=== PATIENT | female | born 1980 | race Caucasian/White ===

== ENCOUNTER 2020-03-23 13:19 | Outpatient (CLI) | payer OTHER ==
[2020-03-23 15:30] VITALS: BP 142/90; PULSE 142; RESP 18; TEMP 98.4
--- NOTE | 2020-04-10 07:53 | P.MSEPDOC ---
Presenting Problems - Arrival Data Date of Arrival on Unit: 03/23/20 Time of Arrival on Unit: 13:20 Mode of Transport: Ambulatory - Complaint OB-Reason for Admission/Chief Complaint: Possible Onset of Labor Comment: contractions at home x 4 hours, no leaking or bleeding Medical History - Information : 1 Para: 0 Term: 0 : 0 Abortions: Spontaneous or Elective: 0 Number of Living Children: 0 - Gestational Age Gestational Age by FRED (wks/days): 40 Weeks and 0 Days - History Comment: denies complications Review of Systems - Review of Systems Constitutional: No problems Breast: No problems ENT: No problems Cardiovascular: No problems Respiratory: No problems Gastrointestinal: No problems Genitourinary: No problems Musculoskeletal: No problems Neurological: No problems Skin: No problems Vital Signs - Temperature Temperature: 98.4 F Temperature Source: Oral - Pulse Right Sitting Brachial Pulse Rate: 142 Pulse Assessment Method: Automatic Cuff - Respirations Respiratory Rate: 18 Oxygen Delivery Method: Room Air - Blood Pressure Right Arm Sitting Blood Pressure: 142/90 Blood Pressure Mean: 107 Blood Pressure Source: Automatic Cuff Medical Screen Scoring (Pre) - Cervical Exam Dilation: 1-3 cm = 1 Effacement: More than 50% = 2 Membranes: Intact - Uterine Contractions Frequency: > or = 36 weeks =2 Duration: > 40 seconds = 2 Intensity: N/A - Maternal Vital Signs Maternal Temperature: N/A Maternal Blood Pressure: N/A Signs of Preeclampsia: N/A Maternal Respirations: N/A - Maternal Trauma Maternal Trauma: N/A - Assessment - Baby A Baseline FHR: 125 Heart Rate - NICHD Category: Category I (Normal) = 0 NST: Reactive Station: N/A - Total Score - Baby A Total Score - Baby A: 7 - Total Score - Baby B Total Score - Baby B: 7 - Total Score - Baby C Total Score - Baby C: 7 - Level of Risk - Baby A Level of Risk - Baby A: Medium (6-9) - Level of Risk - Baby B Level of Risk - Baby B: Medium (6-9) - Level of Risk - Baby C Level of Risk - Baby C: Medium (6-9) Physician Notification (Pre) - Physician Notified Physician Notified Date: 03/23/20 Physician Notified Time: 15:29 New Order Received: Yes - Notification Comment Comment: Dc Home. return with increased or continued symptoms. follow up with Dr Bynum Wednesday as scheduled. Disposition - Disposition OB Disposition: Discharge to home Discharge Date: 03/23/20 Discharge Time: 15:30 I agree with the RN Medical Screening Exam: Yes Risk & Benefit of care provided described in d/c instruction: Yes Diagnosis: false labor
== END 2020-03-23 15:33 | disposition home or self-care (01) ==
LOC: FBPOP 13:19
PROVIDERS: ATTEND Obstetrics & Gynecology
DX: O47.1 False labor at or after 37 completed weeks of gestation (principal); Z3A.40 40 weeks gestation of pregnancy
CPT/HCPCS: 59025; 99213

== ENCOUNTER 2020-03-23 17:55 | Inpatient (IN) | payer OTHER ==
[2020-03-23] MEDS ORDERED: METHYLERGONOVINE 0.2 MG/ML 1 ML AMP IM PRN (18:06)
[2020-03-23] MEDS ORDERED: TERBUTALINE 1 MG/ML VIAL SQ PRN (18:06)
[2020-03-23] MEDS ORDERED: OXYTOCIN 10 UNIT/ML 1 ML VIAL IM PRN (18:06)
[2020-03-23] MEDS ORDERED: CARBOPROST TROMETHAMINE 250 MCG/ML 1 ML AMP IM PRN (18:06)
[2020-03-23] MEDS ORDERED: LIDOCAINE 0.5% (PF) 5 MG/ML (50 ML SDV) SQ PRN (18:06)
[2020-03-23] MEDS ORDERED: LACTATED RINGERS 1,000 ML IV SCH ×2 (18:15)
[2020-03-23] MEDS ORDERED: OXYTOCIN 30 UNITS/500 ML NS 30 UNIT in SALINE 1 500ML.BAG IV SCH (18:15)
[2020-03-23 18:27] LABS: Basophils % (A) 0 %; Eosinophils # (A) 0.2 k/uL (0-0.7); Eosinophils % (A) 1 %; HCT 41.2 % (34.0-46.0); HGB 13.2 gm/dL (11.4-16.0); Lymphocytes # (A) 1.3 k/uL (1.0-4.8); Lymphocytes % (A) 7 %; MCH 29.3 pg (25.0-35.0); MCHC 32.1 g/dL (31.0-37.0); Mean Platelet Volume 8.3; Monocytes # (A) 0.4 k/uL (0-1.0); Monocytes % (A) 2 %; Neutrophils # (A) 15.7 k/uL (1.3-7.7); Neutrophils % (A) 88 %; Platelet Count 325 k/uL (150-450); RBC 4.53 m/uL (3.80-5.40); RDW 13.2 % (11.5-15.5); WBC 17.8 k/uL (3.8-10.6)
--- NOTE | 2020-03-23 18:55 | P.HPOB ---
History of Present Illness H&P Date: 03/23/20 Chief Complaint: Labor at 40-0/7 weeks This is a 40-year-old 1 para 0 woman with an estimated due date of 03/23/2020 based on LMP consistent with second trimester ultrasound. She presents to labor and delivery triage with spontaneous active contractions worsening throughout the day. She also reports leakage of fluids and has a positive amnio sure test. Her has been notable for advanced maternal age and a history of depression on sertraline 50 mg daily. She reports onset of contractions on this morning. In fact she did come in to labor and delivery triage and was monitored for a couple hours however her cervix remained 1 cm dilated there for she was sent home. Her labor progressed and she re-presented at which time she was found to be 5 cm dilated with a positive amnio sure test. Laboratory data: Blood type O+, antibody screen negative, rubella nonimmune, VDRL nonreactive, hep Christiane surface antigen negative, HIV negative, gonorrhea and clinic cultures negative, glucose tolerance testing within normal limits, group B strep negative. Review of Systems All systems: negative Past Medical History Past Medical History: Thyroid Disorder History of Any Multi-Drug Resistant Organisms: None Reported Past Surgical History: No Surgical Hx Reported Past Anesthesia/Blood Transfusion Reactions: No Reported Reaction Past Psychological History: Depression Smoking Status: Never smoker - Past Family History Mother Family Medical History: No Reported History Medications and Allergies Home Medications Medication Instructions Recorded Confirmed Type Levothyroxine Sodium [Synthroid] 1 tab PO DAILY 03/23/20 03/23/20 History Sertraline [Zoloft] 1 tab PO DAILY 03/23/20 03/23/20 History Allergies Allergy/AdvReac Type Severity Reaction Status Date / Time Sulfa (Sulfonamide Allergy Swelling Verified 03/23/20 18:00 Antibiotics) Exam Vital Signs Temp Pulse Resp BP Pulse Ox 03/23/20 18:09 97.0 F L 83 18 121/84 97 Intake and Output 03/23/20 03/23/20 03/23/20 06:59 14:59 22:59 Other: Weight 187 kg Targeted physical exam is performed: Assisted visibly gravid, actively laboring female. On pelvic examination the cervix is approximately 8 cm dilated 100% effaced. There is a bulging bag of fluids noted which is ruptured and particulate meconium-stained fluid is noted. Vertex is in the -2 station. heart tones are category 2 with some decreased variability noted. She is jason approximately every 1-3 minutes spontaneously. Results Result Diagrams: 03/23/20 18:17 Abnormal Lab Results - Last 24 Hours (Table) 03/23/20 Range/Units 18:17 WBC 17.8 H (3.8-10.6) k/uL Neutrophils # 15.7 H (1.3-7.7) k/uL Assessment and Plan (1) Term Current Visit: Yes Status: Acute Code(s): Z34.90 - ENCNTR FOR SUPRVSN OF NORMAL , UNSP, UNSP TRIMESTER SNOMED Code(s): 26862499 (2) Advanced maternal age (AMA) in Current Visit: Yes Status: Acute Code(s): CSS6444 - SNOMED Code(s): 699131210 (3) Spontaneous onset of labor Current Visit: Yes Status: Acute Code(s): CLE9781 - SNOMED Code(s): 32222572 (4) Spontaneous rupture of membranes Current Visit: Yes Status: Acute Code(s): XHG5281 - SNOMED Code(s): 199440825 (5) Meconium in amniotic fluid Current Visit: Yes Status: Acute Code(s): P96.83 - MECONIUM STAINING SNOMED Code(s): 2290464 Plan: 40-year-old 1 in spontaneous active labor at 40-0/7 weeks gestation with spontaneous rupture of membranes and findings of the particulate meconium-st ained fluid. heart tones currently category 2 with some decreased variability but no decelerations. Process was has been notified to be on standby for delivery for suctioning. Patient is group B strep negative and Rh+. Anticipate spontaneous vaginal delivery.
[2020-03-23] MEDS ORDERED: CITRIC ACID-SODIUM CITRATE 15 ML CUP PO ONE ×2 (21:20→21:24)
[2020-03-23] MEDS ORDERED: ONDANSETRON 4 MG/2 ML VIAL ONE (21:32)
[2020-03-23] MEDS ORDERED: MORPHINE SULFATE (PF) 0.3 MG/0.3 ML SYR ONE (21:32)
[2020-03-23] MEDS ORDERED: OXYTOCIN 10 UNIT/ML 1 ML VIAL ONE (21:32)
[2020-03-23] MEDS ORDERED: KETOROLAC 15 MG/ML 1 ML VIAL ONE (21:32)
--- NOTE | 2020-03-23 22:32 | P.OP ---
Date of Procedure: 03/23/20 Preoperative Diagnosis: Term Maternal intolerance of the second stage Meconium fluid Postoperative Diagnosis: Same Procedure(s) Performed: Primary low transverse section Anesthesia: spinal Surgeon: Freya Denson Neonatal Intensive Care Unit Nurse #1: Hany Varner Estimated Blood Loss (ml): 400 IV fluids (ml): 1,000 Urine output (ml): 300 Pathology: other (Placenta) Condition: stable Disposition: floor Indications for Procedure: This is a 40-year-old 1 para 0 woman who presented in spontaneous active labor with rupture of membranes at 40-0/7 weeks gestation. She was 5 cm dilated with a positive amnio sure upon admission. She had a fore bag was ruptured and she was found to be 8 cm dilated. She progressed to complete cervical dilation however found actively pushing in the second stage very difficult. The beginning of the second stage of labor she had a prolonged bradycardia to the 80 bpm which did resolve with maternal position changes and oxygen. With positioning for the remainder of the second stage she did have reassuring heart tones. Unfortunately she was unable or unwilling to comfortably and actively participated in the second stage of labor despite education enco uragement and coaching. She eventually declared that she could not push and requested a . The procedure, anticipated recovery, implications for future pregnancies and risks were reviewed with the patient and her . Risks specifically stated were bleeding, transfusion, infection, injury to internal structures or the , anesthesia complications or DVT. Consent was obtained and the anesthesiologist was notified. Operative Findings: Female in the vertex occiput anterior position deeply engaged in the maternal pelvis. Thick meconium stained fluid. Nuchal cord 1. Intact, three- vessel cord placenta. Normal-appearing bilateral fallopian tubes and ovaries. Apgars of 6 at 1 minute and 9 at 5 minutes and 9 at 10 minutes weighing 7 lbs. 13 oz., 3540 g. Description of Procedure: After the patient and her were counseled regarding the procedure and consent was obtained, she's taken to the operating room where spinal anesthetic was administered without incident. She is in positioned, prepped and draped in the dorsal supine position with a leftward tilt. Lueng catheter was in the bladder and scalp electrode was removed prior to draping. Anesthetic was then confirmed adequate and a low transverse skin incision was made and carried down to the underlying fascia sharply and with the electrocautery. The fascia was incised in the midline and extended bilaterally with the Vargas scissors. The superior and inferior aspects of the fascial incision were elevated and the underlying rectus muscles dissected off sharply and with the electrocautery. The rectus muscles were sharply in the midline and the peritoneum was identified, tented up and entered sharply. The peritoneal incision was extended inferiorly and superiorly with good visualization the bladder. The bladder blade was placed. The vesicouterine peritoneum was identified, tented up and entered sharply. The bladder flap was created both sharply and digitally. Bladder blade was replaced. A low transverse uterine incision was made and carried down to the underlying amniotic membranes carefully. The membranes were ruptured and copious meconium-stained fluid was noted. The was noted to be deeply engaged the maternal pelvis. The head was carefully elevated out of the pelvis and the head was delivered. The nose and mouth were thoroughly bulb suctioned. Tight nuchal cord 1 was noted and reduced. The rest the infant was delivered onto the field with the nose and mouth were further bulb suctioned and the cord was clamped and cut. The infant was taken to the warmer for further evaluation. An intact, three- vessel cord placenta with meconium staining was manually removed. The uterus was exteriorized and cleared of all clot and debris. Uterus incision was delineated using Johnson's and the incision was closed in a running locked fashion with 0 Vicryl suture. A second imbricating layer of the same suture was noted. Additional [id number] suture in the midline 2 was noted for hemostasis. The uterus was then returned to the abdomen and the gutters were cleared of all clot and debris. The uterine incision was inspected and was noted to be hemostatic. The fascial edges, rectus muscles and peritoneal edges were inspected and also noted to be hemostatic. The peritoneum was reapproximated in the midline. The fascia was then closed in running fashion with 0 Vicryl suture. The subcutaneous tissue was irrigated and noted to be hemostatic. This was closed using 3-0 chromic. The skin was then closed in a subcutaneous fashion with 4-0 Vicryl suture. All counts reported to me as correct by the operating room staff the patient was transported recovery area in stable condition.
[2020-03-23] MEDS ORDERED: diphenhydrAMINE 50 MG/ML 1 ML VIAL IVP PRN ×2 (22:33)
[2020-03-23] MEDS ORDERED: ACETAMINOPHEN TAB 325 MG TAB PO PRN (22:33)
[2020-03-23] MEDS ORDERED: diphenhydrAMINE 25 MG CAP PO PRN (22:33)
[2020-03-23] MEDS ORDERED: ZOLPIDEM 5 MG TAB PO PRN (22:33)
[2020-03-23] MEDS ORDERED: NALOXONE 0.4 MG/ML 1 ML VIAL IV PRN (22:33)
[2020-03-23] MEDS ORDERED: METOCLOPRAMIDE 5 MG/ML 2 ML VIAL IVP PRN (22:33)
[2020-03-23] MEDS ORDERED: MEASLES-MUMPS-RUBELLA VACC/PF 12,500 UNIT/0.5 ML VIAL SQ ONE (22:33)
[2020-03-23] MEDS ORDERED: diphenhydrAMINE 50 MG CAP PO PRN (22:33)
[2020-03-23] MEDS ORDERED: ONDANSETRON 4 MG/2 ML VIAL IVP PRN (22:33)
[2020-03-23 23:29] LABS: Basophils % (A) 0 %; Eosinophils # (A) 0.1 k/uL (0-0.7); Eosinophils % (A) 0 %; HCT 40.2 % (34.0-46.0); HGB 12.8 gm/dL (11.4-16.0); Lymphocytes # (A) 0.8 k/uL (1.0-4.8); Lymphocytes % (A) 4 %; MCH 29.4 pg (25.0-35.0); MCHC 31.8 g/dL (31.0-37.0); MCV 92.6 fL (80.0-100.0); Mean Platelet Volume 8.4; Monocytes # (A) 0.4 k/uL (0-1.0); Monocytes % (A) 2 %; Neutrophils # (A) 17.3 k/uL (1.3-7.7); Neutrophils % (A) 93 %; Platelet Count 314 k/uL (150-450); RBC 4.34 m/uL (3.80-5.40); RDW 13.2 % (11.5-15.5); WBC 18.6 k/uL (3.8-10.6)
[2020-03-24] MEDS: SERTRALINE 50 MG TAB PO SCH ×2 (01:17→20:48)
[2020-03-24] MEDS: LACTATED RINGERS 1,000 ML IV SCH ×3 (01:21→12:41)
[2020-03-24] MEDS: KETOROLAC 15 MG/ML 1 ML VIAL IVP PRN ×3 (04:11→17:31)
--- NOTE | 2020-03-24 06:13 | P.PNOBGPC ---
Subjective - Subjective Principal diagnosis: Postop day 1/2 Interval history: Resting comfortably. Patient reports: Reports appetite normal, Reports pain well controlled, Denies voiding normally (Leung still in place) Aladdin: doing well Objective - Vital Signs Latest vital signs: Vital Signs Temp Pulse Resp BP Pulse Ox 03/24/20 04:00 98.3 F 97 17 120/79 96 03/24/20 00:25 76 18 136/65 100 03/23/20 23:55 65 18 107/68 98 03/23/20 23:25 96.3 F L 68 18 108/63 97 03/23/20 23:10 80 18 92/64 96 03/23/20 22:55 96 18 98/51 97 03/23/20 22:40 96.4 F L 85 18 102/54 97 03/23/20 22:25 96.3 F L 81 18 105/56 97 03/23/20 18:09 97.0 F L 83 18 121/84 97 Intake and Output 03/23/20 03/23/20 03/24/20 14:59 22:59 06:59 Output Total 600 Balance -600 Output: Urine 200 Estimated Blood Loss 400 Other: Voiding Method Indwelling Catheter Weight 187 kg - Exam Abdomen: Present: soft Incision: Present: dry, intact, dressed Uterus: Present: normal, firm - Labs Labs: Abnormal Lab Results - Last 24 Hours (Table) 03/23/20 03/23/20 Range/Units 18:17 23:16 WBC 17.8 H 18.6 H (3.8-10.6) k/uL Neutrophils # 15.7 H 17.3 H (1.3-7.7) k/uL Lymphocytes # 0.8 L (1.0-4.8) k/uL Assessment and Plan (1) Term Current Visit: Yes Status: Acute Code(s): Z34.90 - ENCNTR FOR SUPRVSN OF NORMAL , UNSP, UNSP TRIMESTER SNOMED Code(s): 22786066 (2) Advanced maternal age (AMA) in Current Visit: Yes Status: Acute Code(s): UTX2645 - SNOMED Code(s): 527108061 (3) Spontaneous onset of labor Current Visit: Yes Status: Acute Code(s): RXH8999 - SNOMED Code(s): 79181823 (4) Spontaneous rupture of membranes Current Visit: Yes Status: Acute Code(s): BTT0328 - SNOMED Code(s): 869452128 (5) Meconium in amniotic fluid Current Visit: Yes Status: Acute Code(s): P96.83 - MECONIUM STAINING SNOMED Code(s): 3067233 (6) Nuchal cord Current Visit: Yes Status: Acute Code(s): O69.81X0 - LABOR AND DEL COMP BY CORD AROUND NECK, W/O COMPRSN, UNSP SNOMED Code(s): 792874460 (7) S/P section Current Visit: Yes Status: Acute Code(s): Z98.891 - HISTORY OF UTERINE SCAR FROM PREVIOUS SURGERY SNOMED Code(s): 347252806 Plan: Postop day one half status post primary low transverse section. Recovering well. Advance per protocol.
[2020-03-24] MEDS ORDERED: LEVOTHYROXINE 88 MCG TAB PO SCH (06:30)
[2020-03-24] MEDS: SENNOSIDES-DOCUSATE SODIUM 1 EACH TAB PO SCH ×2 (08:08→20:48)
[2020-03-24] MEDS ORDERED: SERTRALINE 50 MG TAB PO SCH (09:00)
[2020-03-24 10:33] LABS: Basophils % (A) 0 %; Eosinophils % (A) 0 %; HGB 11.3 gm/dL (11.4-16.0); Lymphocytes # (A) 1.9 k/uL (1.0-4.8); Lymphocytes % (A) 11 %; MCH 30.7 pg (25.0-35.0); MCHC 33.3 g/dL (31.0-37.0); MCV 92.3 fL (80.0-100.0); Mean Platelet Volume 9.1; Monocytes # (A) 0.6 k/uL (0-1.0); Monocytes % (A) 3 %; Neutrophils # (A) 15.1 k/uL (1.3-7.7); Neutrophils % (A) 85 %; Platelet Count 299 k/uL (150-450); RBC 3.69 m/uL (3.80-5.40); RDW 13.8 % (11.5-15.5); WBC 17.8 k/uL (3.8-10.6)
--- NOTE | 2020-03-24 10:50 | P.PN ---
Progress Note - Text Progress Note Date: 03/24/20 S/P POD #1. Had spinal anesthetic with intrathecal narcotic. Excellent analgesia overnight, with minimal side effects. Injection site looks ok, without signs of bleeding or inflammation. Discussed likely length of analgesic effect with patient, and possible need for po analgesics later today. Will re-eval prn.
[2020-03-24] MEDS: IBUPROFEN 600 MG TAB PO PRN (20:47)
[2020-03-24] MEDS: LEVOTHYROXINE 88 MCG TAB PO SCH (20:48)
[2020-03-25] MEDS: HYDROcodone/APAP 5-325MG 1 EACH TAB PO PRN ×4 (00:49→20:40)
[2020-03-25] MEDS: IBUPROFEN 600 MG TAB PO PRN ×3 (06:20→18:24)
--- NOTE | 2020-03-25 07:47 | P.PN ---
Subjective Progress Note Date: 03/25/20 Principal diagnosis: Postoperative day number two Objective - Vital Signs Vital signs: Vital Signs Temp 98.7 F 03/25/20 00:00 Pulse 79 03/25/20 00:00 Resp 16 03/25/20 00:00 BP 123/70 03/25/20 00:00 Pulse Ox 98 03/24/20 20:00 Intake & Output 03/24/20 03/25/20 03/25/20 18:59 06:59 18:59 Intake Total 480 Output Total 600 Balance -120 Intake: Oral 480 Output: Urine 600 Other: # Voids 1 3 - Constitutional General appearance: Present: average body habitus - EENT Eyes: Present: PERRLA ENT: Present: hearing grossly normal - Neck Neck: Present: normal ROM - Respiratory Respiratory: bilateral: CTA - Cardiovascular Rhythm: regular - Gastrointestinal Gastrointestinal Comment(s): Incision clean and dry, intact, Steri-Strips applied. Fundus firm, midline, symmetric, 18 week size. - Integumentary Integumentary: Present: normal - Neurologic Neurologic: Present: CNII-XII intact - Musculoskeletal Musculoskeletal: Present: gait normal, strength equal bilaterally - Psychiatric Psychiatric: Present: A&O x's 3, appropriate affect, intact judgment & insight - Labs CBC & Chem 7: 03/24/20 10:16 Labs: Abnormal Lab Results - Last 24 Hours (Table) 03/24/20 Range/Units 10:16 WBC 17.8 H (3.8-10.6) k/uL RBC 3.69 L (3.80-5.40) m/uL Hgb 11.3 L (11.4-16.0) gm/dL Neutrophils # 15.1 H (1.3-7.7) k/uL Assessment and Plan Assessment: Doing well postoperative day number two Plan: Continue postoperative care. Likely discharge home tomorrow. Discharged today offered and declined, patient prefers one additional day of rest. Time with Patient: Less than 30
[2020-03-25] MEDS: SENNOSIDES-DOCUSATE SODIUM 1 EACH TAB PO SCH ×2 (10:30→20:40)
[2020-03-25] MEDS: LEVOTHYROXINE 88 MCG TAB PO SCH (20:40)
[2020-03-25] MEDS: SERTRALINE 50 MG TAB PO SCH (20:40)
[2020-03-26 01:56] VITALS: RESP 18
[2020-03-26] MEDS: IBUPROFEN 600 MG TAB PO PRN ×2 (02:35→08:13)
[2020-03-26 08:48] VITALS: BP 132/79; PULSE 79; TEMP 98.2
[2020-03-26] MEDS: SENNOSIDES-DOCUSATE SODIUM 1 EACH TAB PO SCH (09:21)
[2020-03-26] MEDS: HYDROcodone/APAP 5-325MG 1 EACH TAB PO PRN (10:08)
--- NOTE | 2020-03-26 11:19 | P.DS ---
Providers Date of admission: 03/23/20 18:18 Expected date of discharge: 03/26/20 Attending physician: Aracelis Bynum Primary care physician: Stated None Hospital Course: This is a 40-year-old female 1 para 0 EDC 03/23/2020 at 40 weeks gestation. Patient presented with spontaneous amniorrhexis, meconium-stained fluid. She progressed to complete but was unable to push the baby through to completion. Decision was made to proceed with primary section. [place] strep cultures are negative, blood type is O+, rubella status nonimmune. Please see admitting history and physical for details. Patient underwent a primary low transverse section and gave to a liveborn female with scores of 6,9 and 9 at one and 5 and 10 minutes respectively. Infant weight 3540 g or 7 lbs. 13 oz. Estimate a blood loss recorded of 400 mL's. Please see dictated operative note for details. This morning the patient is doing well. She is voiding, ambulating, passing flatus without difficulty. Vital signs are stable and she is afebrile. Fundus is firm and in the midline, symmetric and 18 week size. Incision is clean and dry and intact. Extremities are negative for edema. Chest is clear in all perez. Breasts are not engorged. She is judged to be in very good condition for discharge home. Yoder infant has been discharged per compliance engineer products as well. Patient will follow-up with me in the office in 2 weeks. She will use [id number] Advil or Aleve, or Motrin as needed for pain. She will call with any fevers shakes or chills, foul smelling or copious lochia, with the passage of large blood clots, with any pain not alleviated by [id number]-[id number] products, or indeed with any concerns. We have discussed briefly contraceptive options and we'll discuss this further in the office. She is reminded no intercourse, tampons or douching. Continue taking vitamin daily. will follow-up with compliance engineer products as per recommendations. Assessment: Doing well day number two Patient Condition at Discharge: Good Plan - Discharge Summary Discharge Rx Participant: No New Discharge Prescriptions: No Action Sertraline [Zoloft] 1 tab PO DAILY Levothyroxine Sodium [Synthroid] 1 tab PO DAILY Discharge Medication List Levothyroxine Sodium [Synthroid] 1 tab PO DAILY 03/23/20 [History] Sertraline [Zoloft] 1 tab PO DAILY 03/23/20 [History] Follow up Appointment(s)/Referral(s): Aracelis Bynum MD [STAFF PHYSICIAN] - 2 Weeks Discharge Disposition: HOME SELF-CARE
== END 2020-03-26 14:11 | disposition home or self-care (01) | DRG 788 ==
LOC: FBPOP 17:55 → 4FBP 18:18
PROVIDERS: ADMIT Obstetrics & Gynecology; ATTEND Obstetrics & Gynecology
PROC: 10D00Z1 Extraction of Products of Conception, Low, Open Approach (ICD-10-PCS; principal; 2020-03-23 21:32)
DX: O75.0 Maternal distress during labor and delivery (principal); O69.81X0 Labor and delivery complicated by cord around neck, without compression, not applicable or unspecified; O77.0 Labor and delivery complicated by meconium in amniotic fluid; O99.344 Other mental disorders complicating childbirth; F32.9 Major depressive disorder, single episode, unspecified; Z37.0 Single live birth; Z3A.40 40 weeks gestation of pregnancy; Z88.2 Allergy status to sulfonamides
CPT/HCPCS: 84112; 85025; 86850; 86900; 86901; 88307; 90707; 99213

== ENCOUNTER → 2020-11-08 | Outpatient (CLI) | payer OTHER ==
--- NOTE | 2020-11-08 13:54 | US ---
EXAMINATION TYPE: US thyroid st tissue head/neck DATE OF EXAM: 11/08/2020 COMPARISON: NONE CLINICAL HISTORY: E03.9 hypothyroidism. on meds GLAND SIZE: Right Lobe: 3.6 x 1.2 x 0.9 cm Overall Parenchyma: homogenous Left Lobe: 2.2 x 1.0 x 0.7 cm Overall Parenchyma: homogeneous Isthmus Thickness: 0.1 cm NODULES RIGHT: # of nodules measured on right: 0 LEFT: # of nodules measured on left: 1 1. 0.7 X 0.6 x 0.4 cm, upper mid, solid or almost completely solid, hypoechoic nodule, which is wid er than tall, with smooth margins, without echogenic foci. Prior size: No prior ISTHMUS: # of nodules measured in the isthmus: 0 Bilateral neck scanned. Left lateral lymph node seen = 1.5 x 1.3 x 0.9 cm with limited visualization of fatty hilum. IMPRESSION: Nonspecific subcentimeter nodule left thyroid lobe.
== END | disposition home or self-care (01) ==
LOC: RADUSWWP 13:00
PROVIDERS: ATTEND Family Medicine
DX: E04.1 Nontoxic single thyroid nodule (principal)
CPT/HCPCS: 76536

== ENCOUNTER → 2022-12-11 | Outpatient (CLI) | payer OTHER ==
--- NOTE | 2022-12-11 15:07 | US ---
EXAMINATION TYPE: US thyroid st tissue head/neck DATE OF EXAM: 12/11/2022 COMPARISON: US 11/08/2020 CLINICAL INDICATION: Female, 42 years old with history of E041, E039, R590; Patient is on synthroid. Hx nodule, hypothyroidism. GLAND SIZE: Right Lobe: 4.1 x 1.0 x 1.3 cm Overall Parenchyma: homogeneous Left Lobe: 2.6 x 0.9 x 0.8 cm Overall Parenchyma: homogeneous Isthmus Thickness: 0.12 cm NODULES RIGHT: # of nodules measured on right: 0 LEFT: # of nodules measured on left: 1 1. 0.7 X 0.6 x 0.8 cm, upper mid, solid or almost completely solid, hypoechoic nodule, which is tegan ler than wide, with smooth margins, without echogenic foci. TR 4 Prior size: 0.7 x 0.6 x 0.4 cm ISTHMUS: # of nodules measured in the isthmus: 0 Bilateral neck scanned, two hypoechoic areas with hyperechoic centers seen within the lateral left ne ck= #1: 1.3 x 1.4 x 1.3 cm. TR 3 #2: 1.5 x 1.2 x 0.7 cm. IMPRESSION: 1. Small nodule moderately suspicious within the isthmus. Follow-up exam one year can be performed. 2017 ACR TI-RADS LEVEL: TR-RADS 4 - Moderately Suspicious: Follow if > 1 cm, FNA if > 1.5 cm *Highest TI-RADS level nodule reported
== END ==
LOC: RADMAMWWP 13:52
PROVIDERS: ATTEND Family Medicine
DX: E04.1 Nontoxic single thyroid nodule (principal); E03.9 Hypothyroidism, unspecified; R59.0 Localized enlarged lymph nodes; Z79.890 Hormone replacement therapy
CPT/HCPCS: 76536

== ENCOUNTER 2023-01-07 19:46 | Emergency (ER) | payer OTHER ==
[2023-01-07 20:19] VITALS: BP 120/79; PULSE 85; RESP 16; TEMP 98.5
--- NOTE | 2023-01-07 21:27 | ED ---
General Adult HPI - General Chief complaint: Vaginal Bleeding Stated complaint: vaginal bleeding/poss Preg Time Seen by Provider: 01/07/23 20:40 Source: patient, RN notes reviewed Mode of arrival: EMS Limitations: no limitations - History of Present Illness Initial comments: 42-year-old female presents to the emergency department for chief comp laint of vaginal bleeding and cramping and . Patient states that she believes he is about 10 weeks . Last menstrual period 5323. She states that she has had spotting for multiple weeks but has noticed heavier bleeding starting today around 5 PM. She states that she has not gone through pads. She states that the abdominal cramping is in the lower abdomen and started today. She has had a prior but no other abdominal surgeries. Past medical history includes hypothyroidism for which she takes Synthroid. - Related Data Home Medications Medication Instructions Recorded Confirmed Levothyroxine Sodium [Synthroid] 1 tab PO DAILY 03/23/20 03/23/20 Sertraline [Zoloft] 1 tab PO DAILY 03/23/20 03/23/20 Allergies Allergy/AdvReac Type Severity Reaction Status Date / Time Sulfa (Sulfonamide Allergy Swelling Verified 03/23/20 18:00 Antibiotics) Review of Systems ROS Statement: Those systems with pertinent positive or pertinent negative responses have been documented in the HPI. ROS Other: All systems not noted in ROS Statement are negative. Past Medical History Past Medical History: Thyroid Disorder History of Any Multi-Drug Resistant Organisms: None Reported Past Surgical History: No Surgical Hx Reported Past Anesthesia/Blood Transfusion Reactions: No Reported Reaction Past Psychological History: No Psychological Hx Reported, Depression Smoking Status: Never smoker - Past Family History Mother Family Medical History: No Reported History General Exam Limitations: no limitations General appearance: alert, in no apparent distress Head exam: Present: atraumatic, normocephalic, normal inspection Eye exam: Present: normal appearance, PERRL, EOMI. Absent: scleral icterus, conjunctival injection, periorbital swelling ENT exam: Present: normal exam, mucous membranes moist Neck exam: Present: normal inspection. Absent: tenderness, meningismus, lymphadenopathy Respiratory exam: Present: normal lung sounds bilaterally. Absent: respiratory distress, wheezes, rales, rhonchi, stridor Cardiovascular Exam: Present: regular rate, normal rhythm, normal heart sounds. Absent: systolic murmur, diastolic murmur, rubs, gallop, clicks GI/Abdominal exam: Present: soft, normal bowel sounds. Absent: distended, tenderness, guarding, rebound, rigid Extremities exam: Present: normal inspection, full ROM, normal capillary refill. Absent: tenderness, pedal edema, joint swelling, calf tenderness Back exam: Present: normal inspection. Absent: CVA tenderness (R), CVA tenderness (L) Neurological exam: Present: alert, oriented X3 Psychiatric exam: Present: normal affect, normal mood Skin exam: Present: warm, dry, intact, normal color. Absent: rash Course Vital Signs 01/07/23 20:11 Temperature 98.5 F Pulse Rate 85 Respiratory 16 Rate Blood Pressure 120/79 O2 Sat by Pulse 100 Oximetry Medical Decision Making - Medical Decision Making Was pt. sent in by a medical professional or institution (, PA, FIRER LOCOMOTIVE, urgent care, hospital, or [facility]...) When possible be specific @ -No Did you speak to anyone other than the patient for history (EMS, parent, family, police, friend...)? What history was obtained from this source @ -No Did you review nursing and triage notes (agree or disagree)? Why? @ -I reviewed and agree with nursing and triage notes Were old charts reviewed (outside hosp., previous admission, EMS record, old EKG, old radiological studies, urgent care reports/EKG's, [facility] records)? Report findings @ -No old charts were reviewed Differential Diagnosis (chest pain, altered mental status, abdominal pain women, abdominal pain men, vaginal bleeding, weakness, fever, dyspnea, syncope, headache, dizziness, GI bleed, back pain, seizure, CVA, palpatations, mental health, musculoskeletal)? @ -Differential Vaginal Bleeding: Spontaneous , threatened , molar , ectopic , bloody show, incompetent cervix, abruptioplacenta, placenta previa, uterine rupture, dysfunctional uterine bleeding, hemorrhage, uterine fibroids, this is not meant to be an all-inclusive list.] EKG interpreted by me (3pts min.). @ -None X-rays interpreted by me (1pt min.). @ -None done CT interpreted by me (1pt min.). @ -None done U/S interpreted by me (1pt. min.). @ -US showed Intrauterine corresponding to 5 weeks, 6 days; no heart rate was detected, interpreted by the radiologist What testing was considered but not performed or refused? (CT, X-rays, U/S, labs)? Why? @ -None What meds were considered but not given or refused? Why? @ -None Did you discuss the management of the patient with other professionals (professionals i.e. , PA, FIRER LOCOMOTIVE, lab, RT, psych nurse, adoption social worker, tie worker, teacher, forest fire management officer, director of casework department)? Give summary @ -No Was smoking cessation discussed for >3mins.? @ -No Was critical care preformed (if so, how long)? @ -No Were there social determinants of health that impacted care today? How? (Homelessness, low income, unemployed, alcoholism, drug addiction, transportation, low edu. Level, literacy, decrease access to med. care, assisted, rehab)? @ -No Was there de-escalation of care discussed even if they declined (Discuss DNR or withdrawal of care, Hospice)? DNR status @ -No What co-morbidities impacted this encounter? (DM, HTN, Smoking, COPD, CAD, Cancer, CVA, ARF, Chemo, Hep., AIDS, mental health diagnosis, sleep apnea, morbid obesity)? @ -None Was patient admitted / discharged? Hospital course, mention meds given and route, prescriptions, significant lab abnormalities, going to OR and other pertinent info. @ -Discharged. Patient presented to emergency department chief complaint of vaginal bleeding and lower abdominal cramping and . Patient states that she believes she is around 10 weeks and believes that her last menstrual period was around 5323. CBC and CMP within normal limits. Blood type O+, patient does not require RhoGAM. Ultrasound was performed which showed intrauterine corresponding to 5 weeks 6 days, no heart rate was detected. Radiologist recommended short-term follow-up in about 7 days for repeat ultrasound. Patient states that she has an appointment with her new OB on Wednesday and is scheduled for an ultrasound at that time. We discussed the n ecessity for repeat ultrasound in 1 week, return precautions and patient expressed understanding. Patient discharged in stable condition. Case discussed with my attending, Dr. Tapia. Undiagnosed new problem with uncertain prognosis? @ -No Drug Therapy requiring intensive monitoring for toxicity (Heparin, Nitro, Insulin, Cardizem)? @ -No Were any procedures done? @ -No Diagnosis/symptom? @ -Threatened miscarriage Acute, or Chronic, or Acute on Chronic? @ -Acute Uncomplicated (without systemic symptoms) or Complicated (systemic symptoms)? @ -uncomplicated Side effects of treatment? @ -No Exacerbation, Progression, or Severe Exacerbation? @ -No Poses a threat to life or bodily function? How? (Chest pain, [place], [place], pneumonia, PE, COPD, DKA, ARF, appy, cholecystitis, CVA, Diverticulitis, Homicidal, Suicidal, threat to staff... and all critical care pts) @ -No - Lab Data Result diagrams: 01/07/23 21:32 01/07/23 21:32 Lab Results 01/07/23 01/07/23 01/07/23 Range/Units 21:32 21:32 21:32 WBC 10.4 (3.8-10.6) k/uL RBC 4.13 (3.80-5.40) m/uL Hgb 12.9 (11.4-16.0) gm/dL Hct 38.8 (34.0-46.0) % MCV 93.9 (80.0-100.0) fL MCH 31.4 (25.0-35.0) pg MCHC 33.4 (31.0-37.0) g/dL RDW 12.4 (11.5-15.5) % Plt Count 316 (150-450) k/uL MPV 7.3 Neutrophils % 74 % Lymphocytes % 19 % Monocytes % 5 % Eosinophils % 1 % Basophils % 0 % Neutrophils # 7.7 (1.3-7.7) k/uL Lymphocytes # 1.9 (1.0-4.8) k/uL Monocytes # 0.5 (0-1.0) k/uL Eosinophils # 0.1 (0-0.7) k/uL Basophils # 0.0 (0-0.2) k/uL PT 10.0 (9.0-12.0) sec INR 0.9 (<1.2) APTT 24.2 (22.0-30.0) sec Sodium (137-145) mmol/L Potassium (3.5-5.1) mmol/L Chloride (98-107) mmol/L Carbon Dioxide (22-30) mmol/L Anion Gap mmol/L BUN (7-17) mg/dL Creatinine (0.52-1.04) mg/dL Est GFR (CKD-EPI)AfAm (>60 ml/min/1.73 sqM) Est GFR (CKD-EPI)NonAf (>60 ml/min/1.73 sqM) Glucose (74-99) mg/dL Calcium (8.4-10.2) mg/dL Total Bilirubin (0.2-1.3) mg/dL AST (14-36) U/L ALT (4-34) U/L Alkaline Phosphatase (38-126) U/L Total Protein (6.3-8.2) g/dL Albumin (3.5-5.0) g/dL HCG, Quant mIU/mL Urine Color Yellow Urine Appearance Cloudy H (Clear) Urine pH 6.5 (5.0-8.0) Ur Specific [place] 1.021 (1.001-1.035) Urine Protein Negative (Negative) Urine Glucose (UA) Negative (Negative) Urine Ketones Negative (Negative) Urine Blood Large H (Negative) Urine Nitrite Negative (Negative) Urine Bilirubin Negative (Negative) Urine Urobilinogen <2.0 (<2.0) mg/dL Ur Leukocyte Esterase Negative (Negative) Urine RBC 21 H (0-5) /hpf Urine WBC 1 (0-5) /hpf Ur Squamous Epith Cells <1 (0-4) /hpf Urine Bacteria Rare H (None) /hpf Urine Mucus Rare H (None) /hpf Blood Type Blood Type Recheck Bld Type Recheck Status 01/07/23 01/07/23 Range/Units 21:32 21:45 WBC (3.8-10.6) k/uL RBC (3.80-5.40) m/uL Hgb (11.4-16.0) gm/dL Hct (34.0-46.0) % MCV (80.0-100.0) fL MCH (25.0-35.0) pg MCHC (31.0-37.0) g/dL RDW (11.5-15.5) % Plt Count (150-450) k/uL MPV Neutrophils % % Lymphocytes % % Monocytes % % Eosinophils % % Basophils % % Neutrophils # (1.3-7.7) k/uL Lymphocytes # (1.0-4.8) k/uL Monocytes # (0-1.0) k/uL Eosinophils # (0-0.7) k/uL Basophils # (0-0.2) k/uL PT (9.0-12.0) sec INR (<1.2) APTT (22.0-30.0) sec Sodium 140 (137-145) mmol/L Potassium 3.9 (3.5-5.1) mmol/L Chloride 104 (98-107) mmol/L Carbon Dioxide 29 (22-30) mmol/L Anion Gap 7 mmol/L BUN 15 (7-17) mg/dL Creatinine 0.76 (0.52-1.04) mg/dL Est GFR (CKD-EPI)AfAm >90 (>60 ml/min/1.73 sqM) Est GFR (CKD-EPI)NonAf >90 (>60 ml/min/1.73 sqM) Glucose 83 (74-99) mg/dL Calcium 9.3 (8.4-10.2) mg/dL Total Bilirubin 0.4 (0.2-1.3) mg/dL AST 19 (14-36) U/L ALT 18 (4-34) U/L Alkaline Phosphatase 88 (38-126) U/L Total Protein 6.9 (6.3-8.2) g/dL Albumin 4.0 (3.5-5.0) g/dL HCG, Quant 89372.9 mIU/mL Urine Color Urine Appearance (Clear) Urine pH (5.0-8.0) Ur Specific [place] (1.001-1.035) Urine Protein (Negative) Urine Glucose (UA) (Negative) Urine Ketones (Negative) Urine Blood (Negative) Urine Nitrite (Negative) Urine Bilirubin (Negative) Urine Urobilinogen (<2.0) mg/dL Ur Leukocyte Esterase (Negative) Urine RBC (0-5) /hpf Urine WBC (0-5) /hpf Ur Squamous Epith Cells (0-4) /hpf Urine Bacteria (None) /hpf Urine Mucus (None) /hpf Blood Type O Positive Blood Type Recheck O Pos Bld Type Recheck Status No Disposition Clinical Impression: Threatened Disposition: HOME SELF-CARE Condition: Stable Instructions (If sedation given, give patient instructions): Threatened Miscarriage (ED) Additional Instructions: Please follow up with your OB as scheduled on Wednesday for reevaluation and ultrasound. Ultrasound should be obtained again within 1 week. Return to the emergency department for symptoms we discussed including fever, worsening pain, increased vaginal bleeding. Is patient prescribed a controlled substance at d/c from ED?: No Referrals: Eva Jackson MD [Primary Care Provider] - 1-2 days Time of Disposition: 23:45
[2023-01-07 22:05] LABS: Basophils % (A) 0 %; Eosinophils # (A) 0.1 k/uL (0-0.7); Eosinophils % (A) 1 %; HCT 38.8 % (34.0-46.0); HGB 12.9 gm/dL (11.4-16.0); Lymphocytes # (A) 1.9 k/uL (1.0-4.8); Lymphocytes % (A) 19 %; MCH 31.4 pg (25.0-35.0); MCHC 33.4 g/dL (31.0-37.0); MCV 93.9 fL (80.0-100.0); Mean Platelet Volume 7.3; Monocytes # (A) 0.5 k/uL (0-1.0); Monocytes % (A) 5 %; Neutrophils # (A) 7.7 k/uL (1.3-7.7); Neutrophils % (A) 74 %; Platelet Count 316 k/uL (150-450); RBC 4.13 m/uL (3.80-5.40); RDW 12.4 % (11.5-15.5); WBC 10.4 k/uL (3.8-10.6)
[2023-01-07 22:08] LABS: Appearance,Urine Cloudy (Clear); Bacteria,Urine Rare /hpf; Bilirubin,Urine Negative (Negative); Blood,Urine Large (Negative); Color,Urine Yellow; Glucose,Urine (UA) Negative (Negative); Ketones,Urine Negative (Negative); Leukocyte Esterase,Urine Negative (Negative); Mucus,Urine Rare /hpf; Nitrite,Urine Negative (Negative); PH, Urine 6.5 (5.0-8.0); Protein,Urine Negative (Negative); RBC,Urine 21 /hpf (0-5); Specific Gravity,Urine 1.021 (1.001-1.035); Squamous Epithelial Cell,Urine <1 /hpf (0-4); Urobilinogen,Urine <2.0 mg/dL (<2.0); WBC,Urine 1 /hpf (0-5)
[2023-01-07 22:10] LABS: INR 0.9 (<1.2); Partial Thromboplastin Time 24.2 sec (22.0-30.0)
[2023-01-07 22:14] LABS: ALT 18 U/L (4-34); AST 19 U/L (14-36); African American GFR (CKD) >90 (>60 ml/min/1.73 sqM); Alkaline Phosphatase 88 U/L (38-126); Anion Gap 7 mmol/L; Blood Urea Nitrogen 15 mg/dL (7-17); Calcium 9.3 mg/dL (8.4-10.2); Carbon Dioxide 29 mmol/L (22-30); Chloride 104 mmol/L (98-107); Glucose 83 mg/dL (74-99); Non-African American GFR(CKD) >90 (>60 ml/min/1.73 sqM); Potassium 3.9 mmol/L (3.5-5.1); Sodium 140 mmol/L (137-145); Total Bilirubin 0.4 mg/dL (0.2-1.3); Total Protein 6.9 g/dL (6.3-8.2)
[2023-01-07 23:14] LABS: HCG,Quantitative Serum 16466.9 mIU/mL
--- NOTE | 2023-01-07 23:25 | US ---
EXAM: US , Transvaginal CLINICAL HISTORY: ITS.REASON US Reason: preg, vaginal bleeding TECHNIQUE: Real-time transvaginal obstetrical ultrasound of the maternal pelvis and a first trimester with image documentation. Transvaginal imaging was used for better evaluation of the fetus and adnexa. COMPARISON: None. FINDINGS: Gestation: Possible small brenda-gestational hematoma. CRL measures 0. 28 cm corresponding to 5 weeks 6 days. heart rate not detected. Placenta/amniotic fluid: Cannot be adequately evaluated due to the early gestational age. Uterus/cervix: Uterus measures 7.3 x 4 x 6 cm. No myometrial mass. Ovaries: Right ovary measures 3 x 1.8 x 2.7 cm. Left ovary measures 2. 3 x 1.4 x 1.9 cm. No mass. Free fluid: No free fluid. IMPRESSION: Intrauterine corresponding to 5 weeks 6 days by ultrasound. No heart rate detected. Recommend short term follow-up pelvic ultrasound in approximately 7 days.
== END 2023-01-08 00:05 | disposition home or self-care (01) ==
LOC: EC 19:46
DX: O20.0 Threatened abortion (principal); O99.281 Endocrine, nutritional and metabolic diseases complicating pregnancy, first trimester; E07.9 Disorder of thyroid, unspecified; O99.341 Other mental disorders complicating pregnancy, first trimester; F32.A Depression, unspecified; Z3A.01 Less than 8 weeks gestation of pregnancy; Z79.890 Hormone replacement therapy; Z79.899 Other long term (current) drug therapy; Z88.2 Allergy status to sulfonamides
CPT/HCPCS: 36415; 76801; 76817; 80053; 81001; 84702; 85025; 85610; 85730; 86900; 86901; 99284

== ENCOUNTER 2023-01-08 22:42 | Emergency (ER) | payer OTHER ==
[2023-01-08 22:51] VITALS: TEMP 98.8
[2023-01-08] MEDS ORDERED: SODIUM CHLORIDE 0.9% 1,000 ML IV ONE (23:07)
[2023-01-08 23:55] LABS: Basophils % (A) 0 %; Eosinophils # (A) 0.1 k/uL (0-0.7); Eosinophils % (A) 1 %; HCT 38.5 % (34.0-46.0); HGB 12.8 gm/dL (11.4-16.0); Lymphocytes # (A) 2.1 k/uL (1.0-4.8); Lymphocytes % (A) 21 %; MCH 31.3 pg (25.0-35.0); MCHC 33.2 g/dL (31.0-37.0); MCV 94.2 fL (80.0-100.0); Mean Platelet Volume 7.7; Monocytes # (A) 0.5 k/uL (0-1.0); Monocytes % (A) 5 %; Neutrophils # (A) 7.2 k/uL (1.3-7.7); Neutrophils % (A) 72 %; Platelet Count 343 k/uL (150-450); RBC 4.09 m/uL (3.80-5.40); RDW 12.4 % (11.5-15.5); WBC 10.1 k/uL (3.8-10.6)
[2023-01-09 00:09] LABS: INR 0.9 (<1.2); Partial Thromboplastin Time 24.4 sec (22.0-30.0); Prothrombin Time 9.9 sec (9.0-12.0)
[2023-01-09 00:10] LABS: ALT 18 U/L (4-34); AST 20 U/L (14-36); Alkaline Phosphatase 97 U/L (38-126); Blood Urea Nitrogen 15 mg/dL (7-17); Calcium 8.8 mg/dL (8.4-10.2); Carbon Dioxide 21 mmol/L (22-30); Glucose 104 mg/dL (74-99); Potassium 3.9 mmol/L (3.5-5.1); Sodium 136 mmol/L (137-145); Total Bilirubin 0.5 mg/dL (0.2-1.3)
[2023-01-09 00:11] LABS: African American GFR (CKD) >90 (>60 ml/min/1.73 sqM); Anion Gap 10 mmol/L; Chloride 105 mmol/L (98-107); Non-African American GFR(CKD) >90 (>60 ml/min/1.73 sqM)
[2023-01-09 00:12] LABS: Appearance,Urine Turbid (Clear); Bilirubin,Urine Negative (Negative); Blood,Urine Large (Negative); Color,Urine Dark Red; Glucose,Urine (UA) Negative (Negative); Ketones,Urine Negative (Negative); Leukocyte Esterase,Urine Moderate (Negative); Nitrite,Urine Negative (Negative); Protein,Urine 2+ (Negative); RBC,Urine >182 /hpf (0-5); Urobilinogen,Urine <2.0 mg/dL (<2.0); WBC,Urine 6 /hpf (0-5)
[2023-01-09 00:26] LABS: HCG,Quantitative Serum 12140.6 mIU/mL
--- NOTE | 2023-01-09 01:23 | P.OBCN ---
History of Present Illness Consult date: 01/09/23 Reason for consult: other (Spontaneous ) Chief complaint: 5+ weeks spontaneous , acute vaginal bleeding History of present illness: The patient is a 42-year-old 2 para 1001 who presents to the emergency room today with acute vaginal bleeding this evening with a known intrauterine dated at 5+ weeks by ultrasound last evening through the emergency room at which time she was having light vaginal bleeding. Her last menstrual period was end of October which should make her significantly further in . She had light bleeding last night and earlier today and then had acute increase in bleeding this afternoon and evening and thus, presented to the emergency room. I was called by the emergency room team as was acute pooling of vaginal blood and the cervical os could not be visualized by the emergency room team. Obstetrical history: 2 para 1001 with one term section without apparent complications. Current statistics are listed in the history of present illness. Gynecologic history: Unremarkable with no history of any infections to include STDs. Review of Systems Review of systems is confined to history of present illness. Past Medical History Past Medical History: Thyroid Disorder History of Any Multi-Drug Resistant Organisms: None Reported Past Surgical History: No Surgical Hx Reported Past Anesthesia/Blood Transfusion Reactions: No Reported Reaction Past Psychological History: No Psychological Hx Reported, Depression Smoking Status: Never smoker Past Alcohol Use History: None Reported Past Drug Use History: None Reported - Past Family History Mother Family Medical History: No Reported History Medications and Allergies Home Medications Medication Instructions Recorded Confirmed Type Levothyroxine Sodium [Synthroid] 1 tab PO DAILY 03/23/20 03/23/20 History Sertraline [Zoloft] 1 tab PO DAILY 03/23/20 03/23/20 History Allergies Allergy/AdvReac Type Severity Reaction Status Date / Time Sulfa (Sulfonamide Allergy Swelling Verified 01/08/23 22:51 Antibiotics) Exam Vital Signs Temp Pulse Resp BP Pulse Ox 01/08/23 22:49 98.8 F 86 18 133/80 98 Intake and Output 01/08/23 01/08/23 01/09/23 14:59 22:59 06:59 Other: Weight 86.183 kg In general, this is a well-developed, well-nourished white female in no acute distress. Her heart has a regular rhythm and rate without murmur. Her lungs are clear to auscultation bilaterally in all perez. Her abdomen is nondistended, has normal active bowel sounds, soft, nontender, and without any palpable masses, hepatosplenomegaly, or hernias. Her extremities are without any cyanosis, clubbing, or edema. Palpation bilaterally. Pelvic examination demonstrates a moderate amount of clot in the vaginal vault which was removed with a ring forceps at which time it appeared to have tissue in the os which was removed with the clot. The cervix was clearly dilated to inspection. I was unable to remove any further tissue with the ring forceps. There was no active ongoing bleeding from the cervical os. Bimanual pelvic examination demonstrated the cervix to be dilated to approximately 1 cm with a roughly 4-5 week midplane mobile normal shaped uterus with normal adnexa bilaterally. Results Result Diagrams: 01/08/23 23:15 01/08/23 23:15 Abnormal Lab Results - Last 24 Hours (Table) 01/08/23 01/08/23 Range/Units 23:15 23:15 Sodium 136 L (137-145) mmol/L Carbon Dioxide 21 L (22-30) mmol/L Glucose 104 H (74-99) mg/dL Urine Appearance Turbid H (Clear) Urine Protein 2+ H (Negative) Urine Blood Large H (Negative) Ur Leukocyte Esterase Moderate H (Negative) Urine RBC >182 H (0-5) /hpf Urine WBC 6 H (0-5) /hpf Assessment and Plan (1) Spontaneous Current Visit: Yes Status: Acute Code(s): O03.9 - COMPLETE OR UNSP SPONTANEOUS WITHOUT COMPLICATION SNOMED Code(s): 96163465 Plan: The miscarriages likely complete at this point. The tissue will be sent for evaluation by pathology. As the patient is currently hemodynamically stable and not having any active ongoing vaginal bleeding, she'll be discharged to follow- up in the office in 2 weeks' time at which time she will have hCG followed to 0. She is given warning signs regarding heavy vaginal bleeding. Should these recur, she should return to the emergency room. Would anticipate bleeding no heavier than 1 pad per hour or less.
--- NOTE | 2023-01-09 01:23 | ED ---
General Adult HPI - General Chief complaint: Vaginal Bleeding Stated complaint: Vaginal bleeding, first trimester Time Seen by Provider: 01/08/23 23:02 Source: patient Mode of arrival: ambulatory Limitations: no limitations - History of Present Illness Initial comments: 42-year-old female presenting with chief complaint of heavy vaginal bleeding and cramping. Patient presented to our ER yesterday for complaints of spotting and cramping, ultrasound determined the fetus measured about 5 weeks despite the patient being about 10 weeks along her LMP and no heart rate was detected. Today around 9 PM she had significant increase in vaginal bleeding. No lightheadedness or dizziness. No chest pain or difficulty breathing. No fevers or chills. No dysuria. No injury or trauma. - Related Data Home Medications Medication Instructions Recorded Confirmed Levothyroxine Sodium [Synthroid] 1 tab PO DAILY 03/23/20 03/23/20 Sertraline [Zoloft] 1 tab PO DAILY 03/23/20 03/23/20 Allergies Allergy/AdvReac Type Severity Reaction Status Date / Time Sulfa (Sulfonamide Allergy Swelling Verified 01/08/23 22:51 Antibiotics) Review of Systems ROS Statement: Those systems with pertinent positive or pertinent negative responses have been documented in the HPI. ROS Other: All systems not noted in ROS Statement are negative. Past Medical History Past Medical History: Thyroid Disorder History of Any Multi-Drug Resistant Organisms: None Reported Past Surgical History: No Surgical Hx Reported Past Anesthesia/Blood Transfusion Reactions: No Reported Reaction Past Psychological History: No Psychological Hx Reported, Depression Smoking Status: Never smoker Past Alcohol Use History: None Reported Past Drug Use History: None Reported - Past Family History Mother Family Medical History: No Reported History General Exam Limitations: no limitations General appearance: alert, in no apparent distress Head exam: Present: atraumatic, normocephalic, normal inspection Eye exam: Present: normal appearance Neck exam: Present: normal inspection, full ROM Respiratory exam: Present: normal lung sounds bilaterally. Absent: respiratory distress, wheezes, rales, rhonchi, stridor Cardiovascular Exam: Present: regular rate, normal rhythm, normal heart sounds. Absent: systolic murmur, diastolic murmur, rubs, gallop, clicks GI/Abdominal exam: Present: soft, tenderness. Absent: distended, guarding, rebound, rigid External exam: Present: normal external exam Speculum exam: Present: vaginal bleeding (Profuse bleeding, vaginal vault continue to fill back up blood once it was cleared) Neurological exam: Present: alert, oriented X3, CN II-XII intact Psychiatric exam: Present: normal affect, normal mood Skin exam: Present: warm, dry, intact, normal color. Absent: rash Course Vital Signs 01/08/23 01/09/23 22:49 02:53 Temperature 98.8 F Pulse Rate 86 83 Respiratory 18 17 Rate Blood Pressure 133/80 115/73 O2 Sat by Pulse 98 100 Oximetry Medical Decision Making - Medical Decision Making Was pt. sent in by a medical professional or institution (, PA, DESK OPERATOR, urgent care, hospital, or [facility]...) When possible be specific @ -No Did you speak to anyone other than the patient for history (EMS, parent, family, police, friend...)? What history was obtained from this source @ -No Did you review nursing and triage notes (agree or disagree)? Why? @ -I reviewed and agree with nursing and triage notes Were old charts reviewed (outside hosp., previous admission, EMS record, old EKG, old radiological studies, urgent care reports/EKG's, [facility] records)? Report findings @ -Yesterday's ultrasound was reviewed which showed 5 week fetus no heart rate detected Differential Diagnosis (chest pain, altered mental status, abdominal pain women, abdominal pain men, vaginal bleeding, weakness, fever, dyspnea, syncope, headache, dizziness, GI bleed, back pain, seizure, CVA, palpatations, mental health, musculoskeletal)? @ -MDM Differential Vaginal Bleeding: Spontaneous , threatened , molar , ectopic , bloody show, incompetent cervix, abruptioplacenta, placenta previa, uterine rupture, dysfunctional uterine bleeding, hemorrhage, uterine fibroids. ... This is not meant to be an all-inclusive list EKG interpreted by me (3pts min.). @ -As above X-rays interpreted by me (1pt min.). @ -None done CT interpreted by me (1pt min.). @ -None done U/S interpreted by me (1pt. min.). @ -None done What testing was considered but not performed or refused? (CT, X-rays, U/S, labs)? Why? @ -None What meds were considered but not given or refused? Why? @ -None Did you discuss the management of the patient with other professionals (professionals i.e. Dr., PA, DESK OPERATOR, lab, RT, psych nurse, nursing home social worker, asw/asuw tactical air controller, teacher, senior compliance officer, egg caser)? Give summary @ -I spoke with Dr. Lara who came in and evaluated the patient. He was able to clear the products of conception from the vault and patient had no continued bleeding. States that the patient may follow up outpatient if she continues to have no bleeding during her course in the ER Was smoking cessation discussed for >3mins.? @ -No Was critical care preformed (if so, how long)? @ -No Were there social determinants of health that impacted care today? How? (Homelessness, low income, unemployed, alcoholism, drug addiction, transportation, low edu. Level, literacy, decrease access to med. care, long-term, rehab)? @ -No Was there de-escalation of care discussed even if they declined (Discuss DNR or withdrawal of care, Hospice)? DNR status @ -No What co-morbidities impacted this encounter? (DM, HTN, Smoking, COPD, CAD, Cancer, CVA, ARF, Chemo, Hep., AIDS, mental health diagnosis, sleep apnea, morbid obesity)? @ -None Was patient admitted / discharged? Hospital course, mention meds given and route, prescriptions, significant lab abnormalities, going to OR and other pertinent info. @ -6-year-old female presenting for evaluation of heavy vaginal bleeding. Today she obtain an ultrasound showed 5 week fetus without heart rate detected. This evening she had dramatic increase in her vaginal bleeding. Hemoglobin is stable when compared to yesterday's findings, 12.8. HCG 22237.6, decreased from yesterday's which was 27250.9. On pelvic exam vaginal vault continuously filled with blood despite multiple large-bore swabs used to clear the products of conception. I spoke with Dr. Lara who came in to evaluate the patient. He was able to clear the products of conception and the patient had no continued heavy bleeding here in the ER. She was observed for at least 30 minutes after his exam and had no recurrence of symptoms. She is instructed to follow-up with her COUNTY COURT JUDGE report back to ER with any new or worsening symptoms. Follow-up with PCP. Report back to ER with any new or worsening symptoms. Discussed return parameters and answered all questions. Patient conveyed verbal understanding and agreed to the plan. I discussed this case in detail with my attending Dr. Tapia Undiagnosed new problem with uncertain prognosis? @ -No Drug Therapy requiring intensive monitoring for toxicity (Heparin, Nitro, Insulin, Cardizem)? @ -No Were any procedures done? @ -No Diagnosis/symptom? @ -Incomplete miscarriage Acute, or Chronic, or Acute on Chronic? @ -Acute Uncomplicated (without systemic symptoms) or Complicated (systemic symptoms)? @ -Uncomplicated Side effects of treatment? @ -No Exacerbation, Progression, or Severe Exacerbation? @ -No Poses a threat to life or bodily function? How? (Chest pain, [place], [place], pneumonia, PE, COPD, DKA, ARF, appy, cholecystitis, CVA, Diverticulitis, Homicidal, Suicidal, threat to staff... and all critical care pts) @ -No - Lab Data Result diagrams: 01/08/23 23:15 01/08/23 23:15 Lab Results 01/08/23 01/08/23 01/08/23 Range/Units 23:15 23:15 23:15 WBC 10.1 (3.8-10.6) k/uL RBC 4.09 (3.80-5.40) m/uL Hgb 12.8 (11.4-16.0) gm/dL Hct 38.5 (34.0-46.0) % MCV 94.2 (80.0-100.0) fL MCH 31.3 (25.0-35.0) pg MCHC 33.2 (31.0-37.0) g/dL RDW 12.4 (11.5-15.5) % Plt Count 343 (150-450) k/uL MPV 7.7 Neutrophils % 72 % Lymphocytes % 21 % Monocytes % 5 % Eosinophils % 1 % Basophils % 0 % Neutrophils # 7.2 (1.3-7.7) k/uL Lymphocytes # 2.1 (1.0-4.8) k/uL Monocytes # 0.5 (0-1.0) k/uL Eosinophils # 0.1 (0-0.7) k/uL Basophils # 0.0 (0-0.2) k/uL PT 9.9 (9.0-12.0) sec INR 0.9 (<1.2) APTT 24.4 (22.0-30.0) sec Sodium (137-145) mmol/L Potassium (3.5-5.1) mmol/L Chloride (98-107) mmol/L Carbon Dioxide (22-30) mmol/L Anion Gap mmol/L BUN (7-17) mg/dL Creatinine (0.52-1.04) mg/dL Est GFR (CKD-EPI)AfAm (>60 ml/min/1.73 sqM) Est GFR (CKD-EPI)NonAf (>60 ml/min/1.73 sqM) Glucose (74-99) mg/dL Calcium (8.4-10.2) mg/dL Total Bilirubin (0.2-1.3) mg/dL AST (14-36) U/L ALT (4-34) U/L Alkaline Phosphatase (38-126) U/L Total Protein (6.3-8.2) g/dL Albumin (3.5-5.0) g/dL HCG, Quant mIU/mL Urine Color Dark Red Urine Appearance Turbid H (Clear) Urine pH 7.0 (5.0-8.0) Ur Specific [place] 1.020 (1.001-1.035) Urine Protein 2+ H (Negative) Urine Glucose (UA) Negative (Negative) Urine Ketones Negative (Negative) Urine Blood Large H (Negative) Urine Nitrite Negative (Negative) Urine Bilirubin Negative (Negative) Urine Urobilinogen <2.0 (<2.0) mg/dL Ur Leukocyte Esterase Moderate H (Negative) Urine RBC >182 H (0-5) /hpf Urine WBC 6 H (0-5) /hpf Blood Type Blood Type Recheck Bld Type Recheck Status Antibody Screen Spec Expiration Date 01/08/23 01/08/23 Range/Units 23:15 23:15 WBC (3.8-10.6) k/uL RBC (3.80-5.40) m/uL Hgb (11.4-16.0) gm/dL Hct (34.0-46.0) % MCV (80.0-100.0) fL MCH (25.0-35.0) pg MCHC (31.0-37.0) g/dL RDW (11.5-15.5) % Plt Count (150-450) k/uL MPV Neutrophils % % Lymphocytes % % Monocytes % % Eosinophils % % Basophils % % Neutrophils # (1.3-7.7) k/uL Lymphocytes # (1.0-4.8) k/uL Monocytes # (0-1.0) k/uL Eosinophils # (0-0.7) k/uL Basophils # (0-0.2) k/uL PT (9.0-12.0) sec INR (<1.2) APTT (22.0-30.0) sec Sodium 136 L (137-145) mmol/L Potassium 3.9 (3.5-5.1) mmol/L Chloride 105 (98-107) mmol/L Carbon Dioxide 21 L (22-30) mmol/L Anion Gap 10 mmol/L BUN 15 (7-17) mg/dL Creatinine 0.68 (0.52-1.04) mg/dL Est GFR (CKD-EPI)AfAm >90 (>60 ml/min/1.73 sqM) Est GFR (CKD-EPI)NonAf >90 (>60 ml/min/1.73 sqM) Glucose 104 H (74-99) mg/dL Calcium 8.8 (8.4-10.2) mg/dL Total Bilirubin 0.5 (0.2-1.3) mg/dL AST 20 (14-36) U/L ALT 18 (4-34) U/L Alkaline Phosphatase 97 (38-126) U/L Total Protein 7.0 (6.3-8.2) g/dL Albumin 4.0 (3.5-5.0) g/dL HCG, Quant 79248.6 mIU/mL Urine Color Urine Appearance (Clear) Urine pH (5.0-8.0) Ur Specific [place] (1.001-1.035) Urine Protein (Negative) Urine Glucose (UA) (Negative) Urine Ketones (Negative) Urine Blood (Negative) Urine Nitrite (Negative) Urine Bilirubin (Negative) Urine Urobilinogen (<2.0) mg/dL Ur Leukocyte Esterase (Negative) Urine RBC (0-5) /hpf Urine WBC (0-5) /hpf Blood Type O Positive Blood Type Recheck O Pos Bld Type Recheck Status No Antibody Screen NEGATIVE Spec Expiration Date 01/11/20232314 Disposition Clinical Impression: Incomplete miscarriage Disposition: HOME SELF-CARE Condition: Good Instructions (If sedation given, give patient instructions): Miscarriage (ED) Additional Instructions: Follow-up with your COUNTY COURT JUDGE this week. Report back to ER with any new or wors ening symptoms. Alternate Motrin and Tylenol as needed for pain control. Is patient prescribed a controlled substance at d/c from ED?: No Referrals: Eva Jackson MD [Primary Care Provider] - 1-2 days Time of Disposition: 01:22
[2023-01-09 02:54] VITALS: BP 115/73; PULSE 83; RESP 17
== END 2023-01-09 03:02 | disposition home or self-care (01) ==
LOC: EC 22:42
DX: O03.4 Incomplete spontaneous abortion without complication (principal); O99.281 Endocrine, nutritional and metabolic diseases complicating pregnancy, first trimester; Z79.890 Hormone replacement therapy; Z88.2 Allergy status to sulfonamides; Z3A.10 10 weeks gestation of pregnancy
CPT/HCPCS: 36415; 80053; 81001; 84702; 85025; 85610; 85730; 86850; 86900; 86901; 88305; 96360; 96361; 99284